=== PATIENT | male | born 1990 | race African-American/Black ===

== ENCOUNTER 2021-11-30 10:19 | Emergency (ER) | payer MEDICAID ==
[~2021-11-30] VITALS: Ht 180.3 cm; Wt 137.0 kg
[2021-11-30 13:14] VITALS: BP 152/50
== END 2021-11-30 13:14 | disposition home or self-care (01) ==
LOC: ER 10:32
DX: R07.89 Other chest pain (principal); S20.219A Contusion of unspecified front wall of thorax, initial encounter; I11.9 Hypertensive heart disease without heart failure; I25.10 Atherosclerotic heart disease of native coronary artery without angina pectoris; X58.XXXA Exposure to other specified factors, initial encounter; Y93.9 Activity, unspecified; Y92.9 Unspecified place or not applicable; Z95.0 Presence of cardiac pacemaker
CPT/HCPCS: 93005; 99283; Z7610

== ENCOUNTER 2022-11-13 19:57 | Inpatient (IN) | payer MEDICARE, MEDICAID ==
[~2022-11-13] VITALS: Ht 180.3 cm; Wt 166.3 kg
[2022-11-13] MEDS ORDERED: ACETAMINOPHEN 325MG TABLET PO ONE (23:30)
[2022-11-13 23:55] LABS: CHLORIDE 103 mEq/L (98-107)
[2022-11-13 23:57] LABS: BASOPHILS % 0.6 % (0.0-2.0); EOSINOPHILS % 1.3 % (0.0-5.0); HEMATOCRIT. 44.1 % (42.0-52.0); HEMOGLOBIN. 14.9 g/dL (14.0-18.0); LYMPHOCYTES % 37.3 % (20.0-50.0); MEAN CORPUSCULAR HEMOGLOBIN 31.6 pg (28.0-32.0); MEAN CORPUSCULAR VOLUME 93.2 fL (80.0-94.0); MEAN PLATELET VOLUME 9.3 fl (7.4-10.4); MONOCYTES % 8.3 % (2.0-8.0); NEUTROPHILS % 52.5 % (40.0-76.0); PLATELET 183 x1000/uL (130-400); RED BLOOD CELL COUNT 4.72 mill/uL (4.7-6.1); RED CELL DISTRIBUTION WIDTH 13.6 % (11.6-14.6)
[2022-11-14] MEDS ORDERED: ASPIRIN 325MG TABLET PO ONE (01:00)
[2022-11-14] MEDS ORDERED: ACETAMINOPHEN 325MG TABLET PO PRN ×2 (03:30)
[2022-11-14] MEDS ORDERED: CLONIDINE 0.1MG TABLET PO PRN (03:30)
[2022-11-14] MEDS ORDERED: NITROGLYCERIN 0.4MG TABLET SL SL PRN (03:30)
[2022-11-14] MEDS ORDERED: NON FORMULARY PATIENT HOME MED XX SCH (03:30)
[2022-11-14] MEDS ORDERED: DEXTROSE 50% WATER 50ML SYRINGE IV PRN (03:30)
[2022-11-14] MEDS ORDERED: ONDANSETRON HCL 4MG/2ML INJ IV PRN (03:30)
[2022-11-14] MEDS ORDERED: IPRATROPIUM/ALBUTEROL 0.5-3(2.5)MG/3ML NEB NEB PRN (03:30)
[2022-11-14] MEDS ORDERED: DOCUSATE SODIUM 100MG CAPSULE PO PRN (03:30)
[2022-11-14] MEDS ORDERED: ALBUTEROL (0.083%) 2.5MG/3ML NEB HHN PRN (04:00)
[2022-11-14] MEDS ORDERED: IPRATROPIUM BROMIDE (0.02%) 0.5MG/2.5ML NEB HHN PRN (04:00)
[2022-11-14] MEDS: DEXT 5%/0.9% NACL 1,000 ML IV SCH (05:08)
[2022-11-14 05:30] LABS: INR 1.1; PROTHROMBIN TIME 11.5 sec (9.6-11.0)
[2022-11-14 05:39] LABS: CREATINE KINASE MB FRACTION 4.1 ng/mL (0.5-3.6)
[2022-11-14] MEDS: INSULIN LISPRO 100 UNITS/ML SUBCUT SCH ×4 (07:51→20:01)
[2022-11-14] MEDS: BLOOD SUGAR DIAGNOSTIC STRIP TEST SCH ×4 (08:03→20:01)
[2022-11-14 09:30] VITALS: BP 129/77
[2022-11-14] MEDS: DIVALPROEX SODIUM 500MG ER TABLET PO SCH (11:08)
[2022-11-14] MEDS: PANTOPRAZOLE SODIUM 40 MG/VIAL IV SCH (11:08)
[2022-11-14] MEDS: CARVEDILOL 12.5MG TABLET PO SCH ×2 (11:09→20:55)
[2022-11-14] MEDS: APIXABAN 5 MG TABLET PO SCH ×2 (11:10→17:19)
[2022-11-14] MEDS: SPIRONOLACTONE 25MG TABLET PO SCH (11:10)
[2022-11-14] MEDS: ASPIRIN 81MG EC TABLET PO SCH (11:11)
[2022-11-14] MEDS: BUMETANIDE 1MG TABLET PO SCH ×2 (11:11→17:19)
[2022-11-14 12:51] VITALS: BP 104/63
[2022-11-14 16:00] VITALS: BP 104/76
[2022-11-14 16:34] LABS: CREATINE KINASE MB FRACTION 3.6 ng/mL (0.5-3.6)
[2022-11-14 20:00] VITALS: BP 119/94
[2022-11-14] MEDS: ATORVASTATIN CALCIUM 40MG TABLET PO SCH (20:55)
[2022-11-14] MEDS ORDERED: IOHEXOL-300 100 ML BOTTLE ONE (22:50)
[2022-11-15] VITALS: BP 129/74
[2022-11-15 04:00] VITALS: BP 120/70
[2022-11-15] MEDS: DEXT 5%/0.9% NACL 1,000 ML IV SCH (05:59)
[2022-11-15] MEDS: BLOOD SUGAR DIAGNOSTIC STRIP TEST SCH ×4 (06:43→20:48)
[2022-11-15 07:13] LABS: HEMATOCRIT 42.2 % (42.0-52.0); HEMOGLOBIN 14.5 g/dL (14.0-18.0); MEAN CORPUSCULAR HEMOGLOBIN 31.7 pg (28.0-32.0); MEAN CORPUSCULAR VOLUME 92.4 fL (80.0-94.0); PLATELET 168 x1000/uL (130-400); RED BLOOD CELL COUNT 4.57 mill/uL (4.7-6.1); RED CELL DISTRIBUTION WIDTH 13.6 % (11.6-14.6)
[2022-11-15 07:28] LABS: CHLORIDE 101 mEq/L (98-107)
[2022-11-15 07:46] LABS: HDL CHOLESTEROL 50 mg/dL (40-59); LDL CHOLESTEROL 77 mg/dL (5-100); T4 FREE 1.16 ng/dL (0.76-1.46)
[2022-11-15] MEDS: INSULIN LISPRO 100 UNITS/ML SUBCUT SCH ×4 (07:47→20:48)
[2022-11-15 08:00] VITALS: BP 115/77
[2022-11-15] MEDS: ASPIRIN 81MG EC TABLET PO SCH (09:00)
[2022-11-15] MEDS: PANTOPRAZOLE SODIUM 40 MG/VIAL IV SCH (09:15)
[2022-11-15] MEDS: SPIRONOLACTONE 25MG TABLET PO SCH (09:15)
[2022-11-15] MEDS: DIVALPROEX SODIUM 500MG ER TABLET PO SCH (09:16)
[2022-11-15] MEDS: CARVEDILOL 12.5MG TABLET PO SCH ×2 (09:17→20:52)
[2022-11-15] MEDS: BUMETANIDE 1MG TABLET PO SCH ×2 (09:17→17:51)
[2022-11-15] MEDS ORDERED: VERAPAMIL HCL 2.5 MG/1 ML 2ML VIAL IV ONE (11:06)
[2022-11-15] MEDS ORDERED: IODIXANOL 320MG/ML 100 ML BOTTLE IV ONE (11:06)
[2022-11-15] MEDS ORDERED: DIPHENHYDRAMINE 50MG/ML VIAL ONE (11:06)
[2022-11-15] MEDS ORDERED: LIDOCAINE HCL/PF 2% 20MG/ML 5 ML/VIAL ONE (11:07)
[2022-11-15] MEDS ORDERED: HEPARIN 1000 UNITS/ML 10ML ONE (11:07)
[2022-11-15] MEDS ORDERED: MIDAZOLAM HCL 2 MG/2 ML VIAL ONE (11:59)
[2022-11-15] MEDS ORDERED: FENTANYL CITRATE/PF 50MCG/ML 2ML VIAL ONE (11:59)
[2022-11-15] MEDS ORDERED: ATROPINE SULFATE 1MG/10ML SYR IV PRN (12:45)
[2022-11-15] MEDS ORDERED: ACETAMINOPHEN 325MG TABLET PO PRN (12:45)
[2022-11-15 17:00] VITALS: BP 113/73
[2022-11-15 17:30] VITALS: BP 120/83
[2022-11-15 20:00] VITALS: BP 115/60
[2022-11-15] MEDS: ATORVASTATIN CALCIUM 40MG TABLET PO SCH (20:51)
[2022-11-16] VITALS: BP 100/37
[2022-11-16] MEDS: DEXT 5%/0.9% NACL 1,000 ML IV SCH (03:56)
[2022-11-16 04:00] VITALS: BP 130/79
[2022-11-16 06:32] LABS: BASOPHILS % 0.6 % (0.0-2.0); EOSINOPHILS % 1.6 % (0.0-5.0); HEMATOCRIT. 42.1 % (42.0-52.0); HEMOGLOBIN. 14.5 g/dL (14.0-18.0); LYMPHOCYTES % 30.8 % (20.0-50.0); MEAN CORPUSCULAR HEMOGLOBIN 31.5 pg (28.0-32.0); MEAN CORPUSCULAR VOLUME 91.4 fL (80.0-94.0); MEAN PLATELET VOLUME 9.3 fl (7.4-10.4); PLATELET 167 x1000/uL (130-400); RED CELL DISTRIBUTION WIDTH 13.8 % (11.6-14.6)
[2022-11-16 06:41] LABS: INR 1.1; PROTHROMBIN TIME 11.4 sec (9.6-11.0)
[2022-11-16 06:49] LABS: CHLORIDE 103 mEq/L (98-107)
[2022-11-16] MEDS: BLOOD SUGAR DIAGNOSTIC STRIP TEST SCH (07:40)
[2022-11-16] MEDS: INSULIN LISPRO 100 UNITS/ML SUBCUT SCH (07:45)
[2022-11-16 08:00] VITALS: BP 117/79
[2022-11-16] MEDS: SPIRONOLACTONE 25MG TABLET PO SCH (08:25)
[2022-11-16] MEDS: ASPIRIN 81MG EC TABLET PO SCH ×2 (08:25→08:32)
[2022-11-16] MEDS: DIVALPROEX SODIUM 500MG ER TABLET PO SCH (08:25)
[2022-11-16] MEDS: BUMETANIDE 1MG TABLET PO SCH (08:25)
[2022-11-16] MEDS: CARVEDILOL 12.5MG TABLET PO SCH (08:26)
[2022-11-16] MEDS ORDERED: FAMOTIDINE 20MG/2ML VIAL IV SCH (09:00)
[2022-11-16 14:43] VITALS: BP 132/78
[2022-11-16] MEDS ORDERED: FAMOTIDINE 20MG TABLET PO SCH (21:00)
== END 2022-11-16 16:30 | disposition home or self-care (01) | DRG 281 ==
LOC: ER 19:57 → MICUSO 11-14 01:44 → 7WST 11-14 09:30
PROVIDERS: ADMIT Internal Medicine; ATTEND Internal Medicine
PROC: 4A023N7 Measurement of Cardiac Sampling and Pressure, Left Heart, Percutaneous Approach (ICD-10-PCS; principal; 2022-11-15)
PROC: B2111ZZ Fluoroscopy of Multiple Coronary Arteries using Low Osmolar Contrast (ICD-10-PCS; 2022-11-15)
DX: I21.4 Non-ST elevation (NSTEMI) myocardial infarction (principal); I42.2 Other hypertrophic cardiomyopathy; I27.20 Pulmonary hypertension, unspecified; I25.10 Atherosclerotic heart disease of native coronary artery without angina pectoris; E78.5 Hyperlipidemia, unspecified; I10 Essential (primary) hypertension; E11.9 Type 2 diabetes mellitus without complications; M54.30 Sciatica, unspecified side; M76.40 Tibial collateral bursitis [Pellegrini-Stieda], unspecified leg; F32.A Depression, unspecified; I07.1 Rheumatic tricuspid insufficiency; I25.2 Old myocardial infarction; Z95.810 Presence of automatic (implantable) cardiac defibrillator; Z79.01 Long term (current) use of anticoagulants; Z79.82 Long term (current) use of aspirin; Z79.84 Long term (current) use of oral hypoglycemic drugs; Z79.899 Other long term (current) drug therapy; Z56.0 Unemployment, unspecified; V79.9XXA Bus occupant (driver) (passenger) injured in unspecified traffic accident, initial encounter; Y93.89 Activity, other specified; Y92.89 Other specified places as the place of occurrence of the external cause; Y99.8 Other external cause status
CPT/HCPCS: 36415; 71045; 71275; 73562; 73590; 80048; 80053; 80061; 82550; 82553; 82962; 83036; 83880; 84439; 84443; 84484; 85025; 85027; 93005; 93306; 93458; 93970; 99291; C1769; C1887; C1893; C9113; J1200; J1644; J2250; J3010; J3490; L1830; Q9967